=== PATIENT | female | born 1990 | race Caucasian/White ===

== ENCOUNTER → 2019-05-01 07:59 | Outpatient (CLI) | payer OTHER, SELFPAY ==
--- NOTE | 2019-05-01 | DI.MRI.S_ITS ---
PROCEDURE: MR HEAD/BRAIN WO/W CON INDICATIONS: Myalgia, unspecified site TECHNIQUE: Noncontrast axial T1 spin echo, axial T2 fast spin echo, sagittal and axial FLAIR, coronal T2 fast spin echo, axial gradient echo, axial diffusion and ADC through the brain. After the administration of contrast, axial and coronal 3D VIBE or T1 spin echo with fat saturation through the brain. COMPARISON: None. FINDINGS: Image quality: Excellent. CSF Spaces: Basal cisterns are patent. No extra-axial fluid collections. Ventricles are normal in size and shape. Brain: There is a focus of T2 hyperintensity in the left frontal white matter. No midline shift. No intracranial bleeds or masses. No abnormal intracranial enhancement. The brainstem appears normal. Diffusion-weighted images demonstrate no acute ischemic insults. No chronic ischemic insults. Normal intravascular flow voids are present. Skull and face: Calvarial marrow is normal in signal. Orbits appear normal. Sinuses: Sinuses and mastoids appear clear. IMPRESSION: 1. A focus of T2 hyperintensity in the left frontal white matter. The finding is nonspecific. In this young patient, it may represent a demyelinating process such as multiple sclerosis. Recommend clinical correlation. No enhancing lesion is identified. Dictated by: Joyce Barriga M.D. on 05/01/2019 at 9:05 Transcribed by: GARY on 05/01/2019 at 9:07 Approved by: Joyce Barriga M.D. on 05/01/2019 at 10:37
== END ==
PROVIDERS: PCP Family Medicine; Visit Provider General Practice
DX: M79.10 Myalgia, unspecified site (principal)
CPT/HCPCS: 70553

== ENCOUNTER 2019-05-18 17:22 | Emergency (ER) | payer OTHER, SELFPAY ==
--- NOTE | 2019-05-18 17:31 | DI.RAD.S_ITS ---
PROCEDURE: XR ANKLE LT MIN 3V INDICATIONS: RIGHT ANKLE PAIN TECHNIQUE: 3 views of the ankle were acquired. COMPARISON: None. FINDINGS: Bones: No fractures or dislocations. Ankle mortise is normally aligned. No suspicious bony lesions. No navicular fractures are seen. Soft tissues: No tibiotalar joint effusion. Achilles tendon appears normal. IMPRESSION: Negative plain films. Dictated by: Rayray Leone M.D. on 05/18/2019 at 17:01 Approved by: Rayray Leone M.D. on 05/18/2019 at 17:01
[2019-05-18 17:32] VITALS: BP 115/64; PULSE 92; RESP 16; TEMP 36.6; O2SAT 98
[2019-05-18] MEDS: IBUPROFEN 400 MG TABLET 800 MG PO (17:45)
--- NOTE | 2019-05-18 18:44 | ED.LOWEXIN ---
HPI - Extremity Injury (Lower) <ESDRAS Copeland - Last Filed: 05/18/19 19:26> General Chief Complaint: Extremity Injury, Lower Stated Complaint: rolled left ankle Time Seen by Provider: 05/18/19 17:27 Source: patient Mode of arrival: Ambulatory History of Present Illness HPI Narrative: 28-year-old female presents emergency department today complaining of left ankle pain. She states she stepped off a curb yesterday and inverted her left ankle, she was able to bear weight after the incident but reports a 5/10 dull aching pain to her lateral malleolus, she states it is worse with inversion and better with rest. She has taken ibuprofen at this time which helped improve her pain. She has been moving and has been using her ankle frequently and reports increased discomfort with increased use. Patient denies foot pain, knee pain, head trauma, history of ankle injuries, nausea, vomiting, diarrhea, or other concerns Related Data Previous Rx's Medication Instructions Recorded ondansetron [Zofran ODT] 4 mg SUBLINGUAL Q6HP PRN #5 odt 08/07/17 Allergies Allergy/AdvReac Type Severity Reaction Status Date / Time amoxicillin [AMOXICILLIN] Allergy Unknown Unverified 10/13/17 12:50 Review of Systems <ESDRAS Copeland - Last Filed: 05/18/19 19:26> Review of Systems Narrative: REVIEW OF SYSTEMS: GENERAL: Denies fever or chills. HENT: No head trauma. EYES: No double vision or vision loss. CARDIOVASCULAR: No chest pain or syncope. RESPIRATORY: No shortness of breath or cough. GASTROINTESTINAL: No nausea, vomiting, diarrhea, or constipation. GENITOURINARY: No flank pain or dysuria. MUSCULOSKELETAL: Complains of left ankle pain, see HPI. INTEGUMENTARY: No rash, lesions, or pruritus. NEURO: No numbness, tingling. PSYCH: No behavior or mood changes. Patient History <ESDRAS Copeland - Last Filed: 05/18/19 19:26> Medical History No significant medical problems (Acute) Social History Smoking Status: Never smoker alcohol intake frequency: 0-2 drinks per day Substance Use Type: does not use Exam <ESDRAS Copeland - Last Filed: 05/18/19 19:26> Initial Vital Signs Initial Vital Signs: Vital Signs Temperature 97.8 F 05/18/19 17:32 Pulse Rate 92 H 05/18/19 17:32 Respiratory Rate 16 05/18/19 17:32 Blood Pressure 115/64 05/18/19 17:32 Pulse Oximetry 98 05/18/19 17:32 PHYSICAL EXAMINATION: GENERAL: Well groomed, alert, and cooperative. Answers questions promptly and appropriately. Vital signs noted. HENT: Normocephalic, atraumatic. EYES: Symmetrical, sclera white, no periorbital swelling. CARDIOVASCULAR: S1 and S2 sounds normal. Regular rate and rhythm, no murmurs, clicks, or bruits. No pedal edema. RESPIRATORY: Normal respiratory rate, trachea midline, airway patent. No stridor, nasal flaring or accessory muscle use. Lungs are clear in all kinney. MUSCULOSKELETAL: Tenderness to left lateral malleolus, moderate amount of swelling, minute amount of ecchymosis, no erythema. Full range of motion of left ankle against resistance. Increased pain with inversion. Normal gait and coordination. Equal tone and mass bilaterally. No spinal tenderness or deformities. EXTREMITIES: CMS intact. No pedal edema. SKIN: Warm, dry, soft, appropriate color for ethnicity. No lesions, rashes, or wounds. NEURO: Alert and Oriented X 3. No sensory deficits. PSYCH: Appropriate affect and mood. <Yolanda Ibarra DO - Last Filed: 05/19/19 02:04> Initial Vital Signs Initial Vital Signs: Vital Signs Temperature 97.8 F 05/18/19 17:32 Pulse Rate 92 H 05/18/19 17:32 Respiratory Rate 16 05/18/19 17:32 Blood Pressure 115/64 05/18/19 17:32 Pulse Oximetry 98 05/18/19 17:32 Course <ESDRAS Copeland - Last Filed: 05/18/19 19:26> Course Course Narrative: Patient was given ice and ibuprofen which helped relieve symptoms Orders Ordered: ED Orders 05/18/19 17:31 XR ankle LT min 3V Stat Discontinued Medications Ibuprofen (Advil) 800 mg PO NOW ONE Stop: 05/18/19 17:42 Last Admin: 05/18/19 17:45 Dose: 800 mg Documented by: HIPOLITO Vital Signs Vital signs: Vital Signs - 8 hr 05/18/19 18:52 Pulse Rate 77 Respiratory Rate 16 Blood Pressure 110/76 Pulse Oximetry 97 <Yolanda Ibarra DO - Last Filed: 05/19/19 02:04> Orders Ordered: ED Orders 05/18/19 17:31 XR ankle LT min 3V Stat Discontinued Medications Ibuprofen (Advil) 800 mg PO NOW ONE Stop: 05/18/19 17:42 Last Admin: 05/18/19 17:45 Dose: 800 mg Documented by: HIPOLITO Vital Signs Vital signs: Vital Signs - 8 hr 05/18/19 18:52 Pulse Rate 77 Respiratory Rate 16 Blood Pressure 110/76 Pulse Oximetry 97 MDM - Extremity Injury (Lower) <ESDRAS Copeland - Last Filed: 05/18/19 19:26> Medical Records Attestation: I reviewed the patient's medical records. Lab Data Attestation: I reviewed the patient's lab results. Imaging Data Chest x-ray: Radiologist's impression: [address] [address] XRay Report Signed Patient: Vijay Jacobson LMR#: [id number] : 1990Acct:[id number] Age/Sex: 28 / FDate of Service: 05/18/19 Loc: ED Accession Number: [id number] Procedure: XR ankle LT min 3V Ordering Provider: Shante Valentin PROCEDURE: XR ANKLE LT MIN 3V INDICATIONS: RIGHT ANKLE PAIN TECHNIQUE: 3 views of the ankle were acquired. COMPARISON: None. FINDINGS: Bones: No fractures or dislocations. Ankle mortise is normally aligned. No suspicious bony lesions. No navicular fractures are seen. Soft tissues: No tibiotalar joint effusion. Achilles tendon appears normal. IMPRESSION: Negative plain films. Dictated by: Rayray Leone M.D. on 05/18/2019 at 17:01 Approved by: Rayray Leone M.D. on 05/18/2019 at 17:01 [facility] Narrative Medical decision making narrative: This is a 28-year-old female who presents emergency department for left lateral ankle pain after stepping off a sidewalk in inverting her ankle. X-rays negative for any acute fractures. Suspect patient's symptoms are most likely caused by ankle sprain, she was given an Umesh bandage in the emergency department. She denies needing crutches at this time. Patient was encouraged to follow up with her primary care provider in the next few weeks for re-evaluation if her symptoms continue. Strict return precautions given and follow-up instructions discussed. Discharge Plan Departure Patient Disposition: Home Clinical Impression: Ankle sprain Qualifiers: Encounter type: initial encounter Involved ligament of ankle: unspecified ligament Laterality: right Qualified Code(s): S93.401A - Sprain of unspecified ligament of right ankle, initial encounter Discharge Date/Time: 05/18/19 18:30 Instructions: DI for Ankle Sprain Activity Restrictions/Additional Instructions: Thank you for entrusting me with your care today. As discussed, your x-rays negative for any fractures. You may use ibuprofen and an Umesh wrap for pain and swelling. Please follow up with her primary care provider in the next few weeks for re-evaluation. Return emergency department for new or worsening symptoms such as chest pain, shortness of breath, high fevers, or other concerns. Prescriptions: No Action ondansetron [Zofran ODT] 4 MG tablet,disintegrating 4 mg Sublingual Q6HP PRNQty: 5 RF: 0 Referrals: Erika Colbert MD [Primary Care Provider] - Stand Alone Forms: Work Release Note
[2019-05-18 18:52] VITALS: BP 110/76; PULSE 77; RESP 16; O2SAT 97
== END 2019-05-18 18:30 | disposition home or self-care (01) ==
PROVIDERS: Emergency Provider Nurse Practitioner; PCP Family Medicine
DX: S93.402A Sprain of unspecified ligament of left ankle, initial encounter (principal); W18.43XA Slipping, tripping and stumbling without falling due to stepping from one level to another, initial encounter
CPT/HCPCS: 73610; 99282; 99283

== ENCOUNTER → 2019-07-17 09:04 | Outpatient (CLI) | payer OTHER, SELFPAY ==
--- NOTE | 2019-07-17 | DI.MRI.S_ITS ---
PROCEDURE: MR CERVICAL SPINE WO/W CON INDICATIONS: Irritable bowel syndrome without diarrhea TECHNIQUE: Noncontrast sagittal T1 spin echo and T2 fast spin echo, sagittal STIR, sagittal PD fast spin echo, foraminal oblique sagittal T2 fast spin echo, axial gradient echo or T2 fast spin echo through the cervical spine. After the administration of contrast, sagittal and axial T1 spin echo with fat saturation through the cervical spine. COMPARISON: [facility], MR, MR HEAD/BRAIN WO/W CON, 05/01/2019, 8:16. FINDINGS: Image quality: Excellent. Alignment and curvature: There is normal bony alignment. Marrow: Marrow demonstrates normal overall signal. Spinal cord: Visualized spinal cord is normal in size, without white matter lesions. No suspicious intramedullary enhancement. No cerebellar tonsillar herniation. Paraspinous soft tissues: No paravertebral masses or suspicious enhancement. C2-C3: There is partial fusion at this level and including the vertebral bodies and posterior elements. No significant neural foraminal or central canal narrowing can be seen. C3-C4: Normal appearance. C4-C5: Normal appearance. C5-C6: Normal appearance. C6-C7: Normal appearance. C7-T1: Normal appearance. IMPRESSION: No abnormal cervical spine white matter lesions are seen to suggest multiple sclerosis plaques within the cervical spine. No abnormal enhancement is seen. 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 Dictated by: Rayray Leone M.D. on 07/17/2019 at 9:41 Approved by: Rayray Leone M.D. on 07/17/2019 at 9:43
== END ==
PROVIDERS: PCP Family Medicine
DX: K58.9 Irritable bowel syndrome, unspecified (principal); R29.90 Unspecified symptoms and signs involving the nervous system; M43.22 Fusion of spine, cervical region
CPT/HCPCS: 72156

== ENCOUNTER → 2022-08-10 08:58 | Outpatient (CLI) | payer OTHER, SELFPAY ==
--- NOTE | 2022-08-10 | DI.MRI.S_ITS ---
PROCEDURE: MR ANKLE LT WO CON INDICATIONS: Pain in left ankle and joints of left foot TECHNIQUE: Noncontrast sagittal T1 spin echo and T2 fast spin echo with fat saturation, axial proton density fast spin echo and T2 fast spin echo with fat saturation, coronal T1 spin echo and T2 fast spin echo with fat saturation through the ankle/hindfoot. COMPARISON: None. FINDINGS: Image quality: Excellent. Bones and joints: Mild edema involving lateral periphery of lateral malleolus is seen without discrete fracture line.. No hindfoot coalitions. No osteochondral injuries of the talar dome. Small amount of tibiotalar and subtalar joint fluid is seen, no gross loose bodies. Medial structures: The posterior tibialis, flexor digitorum longus, and flexor hallucis longus tendons are intact. The posterior tibial neurovascular bundle appears normal within the tarsal tunnel, without extrinsic mass effect. The deep layer (anterior and posterior tibiotalar ligaments) and superficial layer (tibionavicular, tibiospring, and tibiocalcaneal ligaments) of the deltoid ligament appear normal. The spring ligament components (superomedial calcaneonavicular, medioplantar oblique calcaneonavicular, and inferoplantar longitudinal ligaments) are intact. Lateral structures: The anterior talofibular, calcaneofibular, and posterior talofibular ligaments appear mildly thickened. More superiorly, the anterior and posterior tibiofibular ligaments appear thickened with intrasubstance T2 hyperintense signal. The tibiofibular syndesmosis is normal in width at 2 mm or less. The peroneus brevis tendon is intact. Thickened peroneus longus tendon at the level of calcaneus and lateral malleolus is seen. Adjacent bony peroneal tubercle and retrotrochlear prominence are normal in size. The sinus tarsi demonstrates normal fatty signal, without edema, fibrosis, or cyst formation. Visualized sinus tarsi components (cervical ligament, interosseous talocalcaneal ligament, roots of the inferior extensor retinaculum) appear normal. The calcaneonavicular and calcaneocuboid components of the bifurcate ligament appear intact. The dorsal calcaneocuboid ligament appears intact. Anterior structures: The tibialis anterior, extensor hallucis longus, and extensor digitorum longus tendons appear intact. The dorsal talonavicular ligament appears intact. Posterior and plantar structures: Achilles tendon is intact. Medial and lateral bands of the plantar fascia are of normal thickness. No abductor digiti quinti muscle atrophy to suggest Allen neuropathy. IMPRESSION: 1. Suggestion of mild contusion involving lateral malleolus with marrow edema. No fracture or dislocation. No osteochondral injuries of talar dome. Small amount of joint fluid, no gross loose bodies. 2. Low-grade sprain involving anterior and posterior talofibular ligament and calcaneofibular ligament. Low-grade sprain/intrasubstance partial-thickness tear involving anterior and posterior tibial fibular ligaments. 3. Tendinosis involving peroneus longus tendon at the level of lateral malleolus extending to the level of calcaneus. Dictated by: Emeka Chapman M.D. on 08/10/2022 at 11:38 Approved by: Emeka Chapman M.D. on 08/10/2022 at 12:34
== END ==
PROVIDERS: PCP Family Medicine; Referring Provider Podiatrist; Visit Provider Podiatrist
DX: S93.492A Sprain of other ligament of left ankle, initial encounter (principal); S93.412A Sprain of calcaneofibular ligament of left ankle, initial encounter; S93.432A Sprain of tibiofibular ligament of left ankle, initial encounter; M25.572 Pain in left ankle and joints of left foot
CPT/HCPCS: 73721